=== PATIENT | female | born 1970 | race Caucasian/White ===

== ENCOUNTER 2017-09-22 07:23 | Emergency (ER) | payer OTHER ==
--- NOTE | 2017-09-22 07:37 | ED Physician Documentation ---
Abdominal Pain - HISTORIAN Historian: patient - HPI Chief Complaint: Abdominal Pain Onset: hours (0300) Duration: constant Timing: worse Context: denies: out of country travel, bad food Severity: moderate Quality: pain Associated Symptoms: chills, nausea, diarrhea. denies: fever, vomiting, bloody stools, grossly bloody stools, mucous Exacerbated by: nothing Relieved by: nothing - ROS CONST: no problems - SOCIAL HX Smoking History: non-smoker Alcohol Use: none Drug Use: none - FAMILY HX Family History: none, aortic aneurysm - PAST HX Past History: none Ischemic Bowel Risk Factors: none Home Medications: Ambulatory Orders Medication Instructions Recorded Tramadol HCl [Ultram] 50 mg PO Q4 PRN #20 tablet 09/22/17 Allergies/Adverse Reactions: Allergies Allergy/AdvReac Type Severity Reaction Status Date / Time No Known Allergies Allergy Unverified 09/22/17 07:38 - VITAL SIGNS Vital Signs: Vital Signs Temp Pulse Resp BP Pulse Ox 97.8 F 69 20 94/58 99 09/22/17 07:24 09/22/17 10:58 09/22/17 10:58 09/22/17 10:58 09/22/17 10:58 Progress - Progress Progress: 08:52 Patient states that her pain is starting to get worse again, will give toradol 30mg IV ED Results Lab/Radiology - Lab Results Lab Results: Lab Results 09/22/17 09/22/17 09/22/17 08:05 08:00 08:00 WBC RBC Hgb Hct MCV MCH MCHC RDW Plt Count Neut % (Auto) Lymph % (Auto) [place] % (Auto) Eos % (Auto) Baso % (Auto) Neut # (Auto) Lymph # (Auto) [place] # (Auto) Eos # (Auto) Baso # (Auto) Reactive Lymphs % Reactive Lymphs # Sodium 142 mmol/L mmol/L (136-145) Potassium 4.1 mmol/L mmol/L (3.5-5.1) Chloride 99 mmol/L mmol/L (98-107) Carbon Dioxide 31 mmol/L H mmol/L (22-30) BUN 17 mg/dL mg/dL (7-17) Creatinine 0.90 mg/dL mg/dL (0.52-1.04) Estimated Creat Clear 82 Est GFR ( Amer) > 60 (60 - ) Est GFR (Non-Af Amer) > 60 (60 - ) Glucose 91 mg/dL mg/dL (74-106) Calcium 9.5 mg/dL mg/dL (8.4-10.2) Total Bilirubin 0.5 mg/dL mg/dL (0.2-1.3) AST 29 U/L U/L (15-46) ALT 32 U/L U/L (13-69) Alkaline Phosphatase 49 U/L U/L (38-126) Total Protein 7.5 g/dL g/dL (6.3-8.2) Albumin 4.3 g/dL g/dL (3.5-5.0) Lipase 211 U/L U/L (23-300) Urine Color Yellow (YELLOW) Urine Appearance Clear (CLEAR) Urine pH 6.5 (5.0 - 8.0) Ur Specific [place] 1.015 (1.010-1.030) Urine Protein Negative mg/dL mg/dL (NEGATIVE) Urine Ketones Negative mg/dL mg/dL (NEGATIVE) Urine Occult Blood Negative (NEGATIVE) Urine Nitrite Negative (NEGATIVE) Urine Bilirubin Negative (NEGATIVE) Urine Urobilinogen 0.2 Eu Eu (0.2-1.0) Ur Leukocyte Esterase Negative (NEGATIVE) Urine Glucose Negative mg/dL mg/dL (NEGATIVE) Urine HCG, Qual Negative (NEGATIVE) 09/22/17 08:00 WBC 7.80 K/ul K/ul (4.00-12.00) RBC 4.03 M/ul M/ul (3.90-5.20) Hgb 12.8 g/dL g/dL (12.0-16.0) Hct 37.9 % % (34.5-46.5) MCV 94.1 fl fl (80.0-100.0) MCH 31.8 pg pg (28.0-34.0) MCHC 33.8 g/dL g/dL (30.0-36.0) RDW 12.6 % % (11.3-14.3) Plt Count 249 K/mm3 K/mm3 (130-400) Neut % (Auto) 56.4 % % (39.0-79.0) Lymph % (Auto) 35.8 % % (16.0-50.0) [place] % (Auto) 3.3 % % (0.0-11.0) Eos % (Auto) 2.1 % % (0.0-6.8) Baso % (Auto) 0.4 (0.0-1.5) Neut # (Auto) 4.4 # k/uL # k/uL (1.4-7.7) Lymph # (Auto) 2.8 # k/uL # k/uL (0.6-4.0) [place] # (Auto) 0.3 # k/uL # k/uL (0.0-0.9) Eos # (Auto) 0.2 # k/uL # k/uL (0.0-0.6) Baso # (Auto) 0.0 # k/uL # k/uL (0.0-0.5) Reactive Lymphs % 2.0 % % (0.0-5.0) Reactive Lymphs # 0.2 # k/uL # k/uL (0.0-0.8) Sodium Potassium Chloride Carbon Dioxide BUN Creatinine Estimated Creat Clear Est GFR ( Amer) Est GFR (Non-Af Amer) Glucose Calcium Total Bilirubin AST ALT Alkaline Phosphatase Total Protein Albumin Lipase Urine Color Urine Appearance Urine pH Ur Specific [place] Urine Protein Urine Ketones Urine Occult Blood Urine Nitrite Urine Bilirubin Urine Urobilinogen Ur Leukocyte Esterase Urine Glucose Urine HCG, Qual - Radiology Radiology Impressions: Examination: CT Abdomen/pelvis History: Right abdominal discomfort Comparison exams: None available Technique: CT Abdomen/pelvis with IV protocol. Findings: Liver, spleen, adrenals, pancreas, and kidneys are without gross irregularity. No abnormal enhancement. Gallbladder contracted. Small amount of adjacent fluid. No suspicious renal calcifications. Ureters do not appear to be dilated in their course through the abdomen and pelvis. Bladder margins within normal limits. Abdominal aorta without aneurysm or peripheral atherosclerotic the wall the disease. Cardiac silhouette not enlarged. No pericardial effusion Few mildly prominent loops of small bowel within the upper left abdomen associated with air-fluid levels. Stool within the large bowel limiting sensitivity. No mesenteric inflammatory changes or free fluid. What appears to be the appendix is without inflammatory changes. Few sigmoid diverticula. No adjacent inflammation. Osseous structures demonstrate mild degenerative spurring. Lung bases mild dependent atelectasis/scarring. No effusion. Impression: Gallbladder contracted with small amount of adjacent fluid. Recommend obtaining right upper quadrant ultrasound to further evaluate. Few prominence of small bowel with air-fluid levels within the left mid upper abdomen - regional enteritis. No abdominal mass or inflammatory process. Sigmoid diverticulosis. No evidence for acute diverticulitis. No suspicious renal calcifications or abnormal ureteric dilation. Mild lung base parenchymal scarring. No effusion. Electronically signed on Sep 22, 2017 8:44:15 AM [employer]SEM[employer] by: Art Bermudez Examination: Ultrasound gallbladder History: Epigastric discomfort Comparison exam: CT dated 22 September 2017 Findings: Sonographic evaluation of the right upper quadrant demonstrates a contracted gallbladder. No visible stones or sludge. Gallbladder wall measures 3.3 mm. Common bile duct measures 5.2 mm. Trace amount of pericholecystic fluid. No intrahepatic biliary dilation. Liver demonstrates normal homogeneous echogenicity. No mass or cyst. Normal flow on color analysis. Right kidney measures 10.2 cm in length. No cortical mass or cyst. No hydronephrosis. Pancreatic region without gross irregularity. Impression: Contracted gallbladder without visible stone or sludge. Gallbladder wall measures 3.3 mm which may be secondary to contraction. Trace amount of pericholecystic fluid. Acalculous cholecystitis cannot be excluded. - Orders Orders: ED Orders Category Date Time Status Place IV Lock 1T Care 09/22/17 07:[address] ABDOMEN PELVIS C [CT ABD & PELVIS W/ CON] Stat Exams 09/22/17 Completed US ABDOMEN LIMITED [US] Stat Exams 09/22/17 Completed CBC/PLATELET/DIFF Routine Lab 09/22/17 08:00 Completed CMP Routine Lab 09/22/17 08:00 Completed LIPASE Stat Lab 09/22/17 08:00 Completed UA MACRO DIP ONLY Routine Lab 09/22/17 08:05 Completed URINE HCG Routine Lab 09/22/17 08:05 Completed Ketorolac Tromethamine [Toradol] Med 09/22/17 08:52 Discontinued 30 mg IVP NOW ONE Abdominal Pain Physical Exam - Physical Exam General Appearance: alert, mild distress EENT: ENT inspection normal, pharynx normal, no signs of dehydration NECK: normal inspection, supple RESPIRATORY: no resp distress, chest non-tender, breath sounds normal. No: wheezes, rales, rhonchi CVS: reg rate & rhythm, heart sounds normal, equal pulses, no murmur, no gallop , no JVD ABDOMEN: soft, no organomegaly, tenderness (RUQ area, no guarding or rbound tenderness), decreased BS. No: distended, guarding BACK: CVA tenderness (R) (mild) SKIN: warm/dry, normal color EXTREMITIES: non-tender, normal range of motion NEURO: oriented X3, CN's nml as tested, mood/affect nml, cognition normal Vital Signs: Vital Signs Temp Pulse Resp BP Pulse Ox 97.8 F 69 20 94/58 99 09/22/17 07:24 09/22/17 10:58 09/22/17 10:58 09/22/17 10:58 09/22/17 10:58 Discharge Clincal Impression: Constipation Abdominal pain Qualifiers: Abdominal location: right upper quadrant Qualified Code(s): R10.11 - Right upper quadrant pain Prescriptions: Tramadol HCl [Ultram] 50 mg PO Q4 PRN #20 tablet PRN Reason: Pain Referrals: Primary Doctor,No [Primary Care Provider] - 2 Days Additional Instructions: Drink 1/2 bottle of citrate of magnesium this AM. IF not having BM from that drink the other 1/2 half this afternoon. Drink a lot of fluids. If pain contiues or gets worse to follow-up with your primary care provider or return to the ED. Condition: Stable Disposition: HOME, SELF-CARE Decision to Admit: NO Date of Decison to Admit: 09/22/17 Decision Time: 10:45
[2017-09-22 08:04] LABS: BASOPHILS % 0.4 (0.0-1.5); EOSINOPHILS % 2.1 % (0.0-6.8); MEAN CORPUSCULAR HEMOGLOBIN 31.8 pg (28.0-34.0); MEAN CORPUSCULAR VOLUME 94.1 fl (80.0-100.0); MONOCYTES % 3.3 % (0.0-11.0); NEUTROPHILS # 4.4 # k/uL (1.4-7.7)
[2017-09-22 08:18] LABS: eGFR (African) > 60; eGFR (Non-African) > 60
[2017-09-22] MEDS: KETOROLAC TROMETHAMINE 30 MG/1ML VIAL IVP ONE (08:59)
--- NOTE | 2017-09-22 10:03 | Diagnostic Imaging Report ---
XOCHITL PASCUAL [facility] [address] [facility] [address] [place] [address]. [id number] Report Submission Date: Sep 22, 2017 8:44:15 AM MANAGER PET Patient Study Name: DARWIN BARBER Date: Sep 22, 2017 8:12:39 AM MANAGER PET Modality Type: CT\SR Gender: F Description: CT ABD & PELVIS W/ CON : 70 Institution: [facility] Physician: XOCHITL PASCUAL Examination: CT Abdomen/pelvis History: Right abdominal discomfort Comparison exams: None available Technique: CT Abdomen/pelvis with IV protocol. Findings: Liver, spleen, adrenals, pancreas, and kidneys are without gross irregularity. No abnormal enhancement. Gallbladder contracted. Small amount of adjacent fluid. No suspicious renal calcifications. Ureters do not appear to be dilated in their course through the abdomen and pelvis. Bladder margins within normal limits. Abdominal aorta without aneurysm or peripheral atherosclerotic the wall the disease. Cardiac silhouette not enlarged. No pericardial effusion Few mildly prominent loops of small bowel within the upper left abdomen associated with air-fluid levels. Stool within the large bowel limiting sensitivity. No mesenteric inflammatory changes or free fluid. What appears to be the appendix is without inflammatory changes. Few sigmoid diverticula. No adjacent inflammation. Osseous structures demonstrate mild degenerative spurring. Lung bases mild dependent atelectasis/scarring. No effusion. Impression: Gallbladder contracted with small amount of adjacent fluid. Recommend obtaining right upper quadrant ultrasound to further evaluate. Few prominence of small bowel with air-fluid levels within the left mid upper abdomen - regional enteritis. No abdominal mass or inflammatory process. Sigmoid diverticulosis. No evidence for acute diverticulitis. No suspicious renal calcifications or abnormal ureteric dilation. Mild lung base parenchymal scarring. No effusion. Electronically signed on Sep 22, 2017 8:44:15 AM MANAGER PET by: Art HILARIO
--- NOTE | 2017-09-22 10:28 | Diagnostic Imaging Report ---
XOCHITL PASCUAL [facility] [address] [facility] [address] [id number] Report Submission Date: Sep 22, 2017 10:09:39 AM CATERPILLAR DRIVER Patient Study Name: DARWIN BARBER Date: Sep 22, 2017 9:23:28 AM CATERPILLAR DRIVER Modality Type: US Gender: F Description: US ABD LIMITED : 70 Institution: [facility] Physician: XOCHITL PASCUAL Examination: Ultrasound gallbladder History: Epigastric discomfort Comparison exam: CT dated 22 September 2017 Findings: Sonographic evaluation of the right upper quadrant demonstrates a contracted gallbladder. No visible stones or sludge. Gallbladder wall measures 3.3 mm. Common bile duct measures 5.2 mm. Trace amount of pericholecystic fluid. No intrahepatic biliary dilation. Liver demonstrates normal homogeneous echogenicity. No mass or cyst. Normal flow on color analysis. Right kidney measures 10.2 cm in length. No cortical mass or cyst. No hydronephrosis. Pancreatic region without gross irregularity. Impression: Contracted gallbladder without visible stone or sludge. Gallbladder wall measures 3.3 mm which may be secondary to contraction. Trace amount of pericholecystic fluid. Acalculous cholecystitis cannot be excluded. Electronically signed on Sep 22, 2017 10:09:39 AM CATERPILLAR DRIVER by: Art HILARIO
[2017-09-22 11:00] VITALS: BP 94/58
[2017-09-22 17:58] LABS: APPEARANCE,URINE CLEAR (CLEAR); COLOR,URINE YELLOW (YELLOW); OCCULT BLOOD,URINE NEGATIVE (NEGATIVE); PH URINE 6.5 (5.0 - 8.0); URINE HCG NEGATIVE (NEGATIVE); UROBILINOGEN URINE 0.2 Eu (0.2-1.0)
== END 2017-09-22 10:58 | disposition home or self-care (01) ==
LOC: ED 07:23
DX: K59.00 Constipation, unspecified (principal); R10.9 Unspecified abdominal pain
CPT/HCPCS: 74177; 76705; 80053; 81002; 81025; 83690; 85025; 96374; 99283; J1885; Q9967; S1016